=== PATIENT | male | born 1970 | race Caucasian/White ===

== ENCOUNTER 2021-04-07 16:47 | Inpatient (IN) | payer OTHER ==
--- NOTE | 2021-04-07 17:13 | ED ---
General Adult HPI - General Chief complaint: Shortness of Breath Stated complaint: JUDAH Time Seen by Provider: 04/07/21 16:56 Source: patient Mode of arrival: ambulatory Limitations: no limitations - History of Present Illness Initial comments: Dictation was produced using [employer] dictation software. please excuse any grammatical, word or spelling errors. Chief Complaint: 51-year-old presents emergency department for COVID-19 History of Present Illness: Is a 51-year-old male patient has tested positive for Covid 3 days ago. Patient has been symptomatic for approximately 6-7 days. Patient supposedly was recently admitted to the hospital at [facility]. He is admitted for a couple days. He was sent home with home oxygen set 3 L. Patient states that so short of breath having chest pain. Patient is brought to the emergency department. He states he does have some mild pleuritic chest pain. He denies any medical problems but says he takes Norvasc daily. Before meals Covid from his job. He works at a car [employer]. Patient reports that he had all the classic symptoms including anosmia, nasal congestion, cough. The only thing that's persistent nausea chest pain or shortness of breath. The ROS documented in this emergency department record has been reviewed and confirmed by me. Those systems with pertinent positive or negative responses have been documented in the HPI. All other systems are other negative and/or noncontributory. PHYSICAL EXAM: General Impression: Alert and oriented x3, not in acute distress HEENT: Normocephalic atraumatic, extra-ocular movements intact, pupils equal and reactive to light bilaterally, mucous membranes moist. Cardiovascular: Heart regular rate and rhythm Chest: Able to complete full sentences, no retractions, no tachypnea Musculoskeletal: Pulses present and equal in all extremities, no peripheral edema Motor: no focal deficits noted Neurological: CN II-XII grossly intact, no focal motor or sensory deficits noted Skin: Intact with no visualized rashes Psych: Normal affect and mood ED course: 51-year-old male presents emergency department for chest pain s hortness of breath. Vital signs upon arrival shows heart rate of 126. 95% on room air. Without oxygen patient is in the mid 80s. She reports that he was recently admitted to [facility] COVID-19 is sent home with supplemental oxygen.Received records but only records that were faxed to us from [facility] included labs radiology imaging. There was no physician documentation sent from [facility]. Laboratory evaluation obtained. Mild monocytosis at 13.7. Coag panel is unremarkable. D-dimer 1.67. Metabolic panel is acceptable limits. Lactic acidosis 3.3. CRP is 2.9. CT of the chest was ordered showing no signs of pulmonary embolism. Chest x-ray shows multifocal abnormalities. There is concern of superimposed bacterial pneumonia. Patient started on azithromycin and ceftriaxone. Patient will be admitted to [facility] hospitalist group. Pulmonology will be consulted. EKG interpretation: Ventricular rate 124, sinus tachycardia,. 140, QRS 78, QTc 433. No IA prolongation, no QTC prolongation, no ST or T-wave changes noted. Overall, this EKG is unremarkable - Related Data Home Medications Medication Instructions Recorded Confirmed Albuterol Inhaler [Ventolin Hfa 2 puff INHALATION RT-Q6H PRN 04/07/21 04/07/21 Inhaler] Ascorbic Acid [Vitamin C] 500 mg PO DAILY 04/07/21 04/07/21 Cholecalciferol [Vitamin D3 (25 50 mcg PO DAILY 04/07/21 04/07/21 Mcg = 1000 Iu)] Famotidine [Pepcid] 20 mg PO BID 04/07/21 04/07/21 Metoprolol Tartrate [Lopressor] 25 mg PO DIRECTED 04/07/21 04/07/21 Zinc 50 mg PO DAILY 04/07/21 04/07/21 amLODIPine [Norvasc] 10 mg PO DIRECTED 04/07/21 04/07/21 predniSONE See Taper PO DAILY 04/07/21 04/07/21 Allergies Allergy/AdvReac Type Severity Reaction Status Date / Time No Known Allergies Allergy Verified 04/07/21 18:02 Review of Systems ROS Statement: Those systems with pertinent positive or pertinent negative responses have been documented in the HPI. ROS Other: All systems not noted in ROS Statement are negative. Past Medical History Past Medical History: Hypertension History of Any Multi-Drug Resistant Organisms: None Reported Past Surgical History: No Surgical Hx Reported Past Psychological History: No Psychological Hx Reported Smoking Status: Never smoker Past Alcohol Use History: None Reported Past Drug Use History: None Reported General Exam Limitations: no limitations Course Vital Signs 04/07/21 04/07/21 04/07/21 16:49 17:07 17:09 Temperature 98.5 F Pulse Rate 128 H 126 H 126 H Respiratory 25 H 18 Rate Blood Pressure 115/77 121/86 O2 Sat by Pulse 90 L 86 L 95 Oximetry 04/07/21 18:40 Temperature Pulse Rate 118 H Respiratory 18 Rate Blood Pressure 111/87 O2 Sat by Pulse 95 Oximetry Medical Decision Making - Lab Data Result diagrams: 04/07/21 17:08 04/07/21 17:08 Lab Results 04/07/21 04/07/21 04/07/21 Range/Units 17:08 17:08 17:08 WBC 13.7 H (3.8-10.6) k/uL RBC 5.68 (4.30-5.90) m/uL Hgb 15.0 (13.0-17.5) gm/dL Hct 46.9 (39.0-53.0) % MCV 82.7 (80.0-100.0) fL MCH 26.4 (25.0-35.0) pg MCHC 32.0 (31.0-37.0) g/dL RDW 14.3 (11.5-15.5) % Plt Count 272 (150-450) k/uL MPV 7.8 Neutrophils % 90 % Lymphocytes % 5 % Monocytes % 3 % Eosinophils % 1 % Basophils % 0 % Neutrophils # 12.3 H (1.3-7.7) k/uL Lymphocytes # 0.7 L (1.0-4.8) k/uL Monocytes # 0.4 (0-1.0) k/uL Eosinophils # 0.1 (0-0.7) k/uL Basophils # 0.1 (0-0.2) k/uL PT 10.0 (9.0-12.0) sec INR 0.9 (<1.2) APTT 21.4 L (22.0-30.0) sec D-Dimer 1.67 H (<0.60) mg/L FEU Sodium 135 L (137-145) mmol/L Potassium 4.7 (3.5-5.1) mmol/L Chloride 100 (98-107) mmol/L Carbon Dioxide 23 (22-30) mmol/L Anion Gap 12 mmol/L BUN 22 H (9-20) mg/dL Creatinine 1.09 (0.66-1.25) mg/dL Est GFR (CKD-EPI)AfAm >90 (>60 ml/min/1.73 sqM) Est GFR (CKD-EPI)NonAf 79 (>60 ml/min/1.73 sqM) Glucose 326 H (74-99) mg/dL Plasma Lactic Acid Sadi (0.7-2.0) mmol/L Calcium 8.8 (8.4-10.2) mg/dL Magnesium 2.3 (1.6-2.3) mg/dL Troponin I (0.000-0.034) ng/mL C-Reactive Protein 2.9 H (<1.0) mg/dL 04/07/21 04/07/21 Range/Units 17:08 17:08 WBC (3.8-10.6) k/uL RBC (4.30-5.90) m/uL Hgb (13.0-17.5) gm/dL Hct (39.0-53.0) % MCV (80.0-100.0) fL MCH (25.0-35.0) pg MCHC (31.0-37.0) g/dL RDW (11.5-15.5) % Plt Count (150-450) k/uL MPV Neutrophils % % Lymphocytes % % Monocytes % % Eosinophils % % Basophils % % Neutrophils # (1.3-7.7) k/uL Lymphocytes # (1.0-4.8) k/uL Monocytes # (0-1.0) k/uL Eosinophils # (0-0.7) k/uL Basophils # (0-0.2) k/uL PT (9.0-12.0) sec INR (<1.2) APTT (22.0-30.0) sec D-Dimer (<0.60) mg/L FEU Sodium (137-145) mmol/L Potassium (3.5-5.1) mmol/L Chloride (98-107) mmol/L Carbon Dioxide (22-30) mmol/L Anion Gap mmol/L BUN (9-20) mg/dL Creatinine (0.66-1.25) mg/dL Est GFR (CKD-EPI)AfAm (>60 ml/min/1.73 sqM) Est GFR (CKD-EPI)NonAf (>60 ml/min/1.73 sqM) Glucose (74-99) mg/dL Plasma Lactic Acid Sadi 3.3 H* (0.7-2.0) mmol/L Calcium (8.4-10.2) mg/dL Magnesium (1.6-2.3) mg/dL Troponin I <0.012 (0.000-0.034) ng/mL C-Reactive Protein (<1.0) mg/dL Disposition Clinical Impression: COVID-19 Disposition: ADMITTED IP TO THIS HOSP Condition: Critical Referrals: Paco Craft MD [Primary Care Provider] - 1-2 days
[2021-04-07 17:22] LABS: Basophils # (A) 0.1 k/uL (0-0.2); Basophils % (A) 0 %; Eosinophils # (A) 0.1 k/uL (0-0.7); Eosinophils % (A) 1 %; HCT 46.9 % (39.0-53.0); Lymphocytes # (A) 0.7 k/uL (1.0-4.8); Lymphocytes % (A) 5 %; MCH 26.4 pg (25.0-35.0); MCV 82.7 fL (80.0-100.0); Mean Platelet Volume 7.8; Monocytes # (A) 0.4 k/uL (0-1.0); Monocytes % (A) 3 %; Neutrophils # (A) 12.3 k/uL (1.3-7.7); Neutrophils % (A) 90 %; Platelet Count 272 k/uL (150-450); RBC 5.68 m/uL (4.30-5.90); RDW 14.3 % (11.5-15.5); WBC 13.7 k/uL (3.8-10.6)
--- NOTE | 2021-04-07 17:42 | XR ---
EXAMINATION: XR chest 1V portable DATE AND TIME: 04/07/2021 5:25 PM CLINICAL INDICATION: Dyspnea, hypoxia, chest tightness; covid TECHNIQUE: AP upright portable COMPARISON: None FINDINGS: The lungs demonstrate multifocal ill-defined confluent opacities throughout the right upper, mid, and lower lung zones and left mid and lower lung zone. The pattern can correlate with a clinical diagnos is of atypical vs. typical pneumonia. The pleural spaces are negative. The cardiac silhouette is not enlarged. The remainder of the mediastinal silhouette is unremarkable. The skeletal structures and soft tissues are negative for acute findings. IMPRESSION: Prominent multifocal bilateral consolidative pulmonary opacities.
[2021-04-07 17:47] LABS: INR 0.9 (<1.2); Partial Thromboplastin Time 21.4 sec (22.0-30.0)
[2021-04-07 17:59] LABS: African American GFR (CKD) >90 (>60 ml/min/1.73 sqM); Anion Gap 12 mmol/L; Blood Urea Nitrogen 22 mg/dL (9-20); C Reactive Protein 2.9 mg/dL (<1.0); Calcium 8.8 mg/dL (8.4-10.2); Carbon Dioxide 23 mmol/L (22-30); Chloride 100 mmol/L (98-107); Glucose 326 mg/dL (74-99); Magnesium 2.3 mg/dL (1.6-2.3); Non-African American GFR(CKD) 79 (>60 ml/min/1.73 sqM); Potassium 4.7 mmol/L (3.5-5.1); Sodium 135 mmol/L (137-145)
[2021-04-07] MEDS ORDERED: ACETAMINOPHEN TAB 325 MG TAB PO PRN (18:10)
[2021-04-07] MEDS: CHOLECALCIFEROL 25 MCG (1000 IU) TABLET PO SCH (18:41)
[2021-04-07] MEDS: ENOXAPARIN 40 MG/0.4 ML SYRINGE SQ SCH (18:41)
--- NOTE | 2021-04-07 19:45 | HP ---
HISTORY AND PHYSICAL DATE OF SERVICE: 04/07/2021. CHIEF COMPLAINT: Shortness of breath. HISTORY OF PRESENT ILLNESS: This 51-year-old gentleman with a past medical history of hypertension, being followed by Dr. Craft in the outpatient setting, was recently diagnosed with COVID-19 and was monitored in [facility], was found to be hypoxic. Patient was started on oxygen and patient was discharged, but subsequently at home the patient was progressively short of breath and the patient came to [facility]. Patient was found to be hypoxic. Patient also had features of bilateral interstitial pneumonia. Patient was admitted for further evaluation and treatment. Lactic acid was also elevated. Sugars were also elevated at 326. There is no history of any fever, rigors or chills. No history of headache, loss of consciousness, seizures. PAST MEDICAL HISTORY: History of hypertension. HOME MEDICATIONS: Prednisone, Norvasc, zinc, Lopressor, Pepcid, vitamin D3, vitamin C and Ventolin HFA. Doses are reviewed. ALLERGIES: NOTED. FAMILY HISTORY: No history of heart disease or strokes in the family. SOCIAL HISTORY: No history of smoking. No history of alcohol intake. REVIEW OF SYSTEMS: ENT: No diminished hearing. No diminished vision. CARDIOVASCULAR SYSTEM: As mentioned earlier. RESPIRATORY SYSTEM: As mentioned earlier. GI: No nausea, vomiting, diarrhea. : No dysuria. NERVOUS SYSTEM: No numbness, weakness. ALLERGY/IMMUNOLOGY: No asthma or hay fever. MUSCULOSKELETAL: As mentioned earlier. HEMATOLOGY/ONCOLOGY: No history of anemia. ENDOCRINE: As mentioned earlier. CONSTITUTIONAL: As mentioned earlier. DERMATOLOGY: Negative. RHEUMATOLOGY: Negative. PSYCHIATRY: As mentioned earlier. PHYSICAL EXAMINATION: Patient is alert, oriented x3. The pulse is 126, blood pressure 121/86, respiration 18, temperature 98.4, pulse ox 86% on room air. HEENT: Conjunctivae normal. Oral mucosa moist. NECK: No jugular venous distention. CARDIOVASCULAR: S1, S2 muffled. RESPIRATION: Breath sounds diminished at the bases. A few scattered rhonchi. ABDOMEN: Soft, nontender. LEGS: No edema. No swelling. NERVOUS SYSTEM: Higher functions as mentioned earlier. Moves all 4 limbs. No focal motor or sensory deficit. LYMPHATICS: No lymph node palpable in neck, axillae or groin. SKIN: No ulcer, rash, bleeding. JOINTS: No active deforming arthropathy. LABS: WBC 13.7, sodium 135, potassium 4.7 and glucose is 326. Lactic acid 3.3. CRP is 2.9. ASSESSMENT: 1. Acute COVID-19 pneumonia with acute bilateral interstitial pneumonia with acute hypoxic respiratory failure with possible sepsis, present on admission. 2. Elevated D-dimer. Rule out pulmonary embolism. 3. Hyponatremia. 4. Uncontrolled diabetes mellitus with hyperglycemia. 5. Elevated plasma lactic acid. 6. Elevated CRP and inflammatory markers of COVID-19. 7. Hypertension. 8. Obesity with body mass index of 33. RECOMMENDATIONS AND DISCUSSION: In this 51-year-old gentleman who presented with multiple complex medical issues, we will monitor the patient closely, continue the current medications, continue symptomatic treatment. Otherwise at this time I would recommend a CT angio of the chest and consultation with Pulmonary as well as Vascular and Infectious Disease, possible remdesivir. Monitor blood sugars. IV steroids. Prognosis extremely guarded because of multiple complex medical issues. Further recommendations to follow. A copy of this dictation is being forwarded to Dr. Craft, who is the primary physician. MMODL / IJN: [id number] /
--- NOTE | 2021-04-07 19:58 | CT ---
EXAMINATION TYPE: CT angio chest DATE OF EXAM: 04/07/2021 7:24 PM COMPARISON: Chest x-ray 04/07/2021 525pm HISTORY: Shortness of breath, elevated d-dimer. CT DLP: 488.6 mGycm Automated exposure control for dose reduction was used. CONTRAST: CTA scan of the thorax is performed with IV Contrast, patient injected with 100 mL of Isovu e 370, pulmonary embolism protocol. . FINDINGS: LUNGS: Prominent multifocal bilateral consolidative pulmonary opacities in a peripheral distribution are redemonstrated, findings which can correlate with a clinical diagnosis of atypical pneumonia. MEDIASTINUM: There is satisfactory enhancement of the pulmonary artery and its branches, there is no CT evidence for pulmonary embolism. No acute aortic findings. No cardiomegaly or pericardial effusion . There are no greater than 1 cm hilar or mediastinal lymph nodes. OTHER: No additional significant abnormality is seen. IMPRESSION: 1. NEGATIVE FOR PULMONARY EMBOLISM. 2. PROMINENT MULTIFOCAL BILATERAL CONSOLIDATIVE PULMONARY OPACITIES.
[2021-04-07] MEDS ORDERED: NALOXONE 0.4 MG/ML 1 ML VIAL IV PRN (20:04)
[2021-04-07] MEDS ORDERED: cefTRIAXone IN SWFI 1,000 MG/10 ML SYRINGE IVP STA (20:06)
[2021-04-07] MEDS ORDERED: AZITHROMYCIN 500 MG in SODIUM CHLORIDE 0.9% 250 ML IVPB STA (20:06)
[2021-04-07 20:21] LABS: ALT 60 U/L (4-49); AST 38 U/L (17-59); African American GFR (CKD) >90 (>60 ml/min/1.73 sqM); Albumin 3.7 g/dL (3.5-5.0); Alkaline Phosphatase 86 U/L (38-126); Anion Gap 16 mmol/L; Blood Urea Nitrogen 23 mg/dL (9-20); C Reactive Protein 3.1 mg/dL (<1.0); Calcium 8.8 mg/dL (8.4-10.2); Carbon Dioxide 19 mmol/L (22-30); Chloride 101 mmol/L (98-107); Glucose 327 mg/dL (74-99); LDH 1185 U/L (313-618); Non-African American GFR(CKD) 79 (>60 ml/min/1.73 sqM); Potassium 4.9 mmol/L (3.5-5.1); Sodium 136 mmol/L (137-145); Total Bilirubin 0.7 mg/dL (0.2-1.3); Total Protein 7.2 g/dL (6.3-8.2)
[2021-04-07 21:00] LABS: Glucose,Whole Blood 176 mg/dL (75-99)
[2021-04-07] MEDS: INSULIN ASPART (NovoLOG) 100 UNIT/ML VIAL SQ SCH (21:23)
[2021-04-07] MEDS: SODIUM CHLORIDE 0.9% 1,000 ML IV SCH (21:25)
[2021-04-08 07:19] LABS: Glucose,Whole Blood 88 mg/dL (75-99)
[2021-04-08] MEDS: INSULIN ASPART (NovoLOG) 100 UNIT/ML VIAL SQ SCH ×4 (07:42→20:28)
[2021-04-08] MEDS: DEXAMETHASONE SOD PHOSPHATE 10 MG/ML 1 ML VIAL IV SCH (09:54)
[2021-04-08] MEDS: CHOLECALCIFEROL 25 MCG (1000 IU) TABLET PO SCH (09:54)
[2021-04-08 11:44] LABS: Glucose,Whole Blood 98 mg/dL (75-99)
--- NOTE | 2021-04-08 15:19 | P.CNPUL ---
History of Present Illness Consult date: 04/08/21 Requesting physician: Aneesh Salinas Reason for consult: dyspnea, cough, hypoxemia, pneumonia, abnormal CXR/CT Chief complaint: Cough, dyspnea History of present illness: 51-year-old male patient with past medical history of hypertension, otherwise generally healthy who presented to the emergency department on 04/07/2021 with complaints of fever, body aches, loss of taste, increasing shortness of breath and cough with some phlegm production and patient tested positive for COVID 3 days ago. Patient was supposedly recently admitted to the hospital at [facility] for a couple of days. He was then sent home with home oxygen set at 3 L. Patient came in for reevaluation. He reports some mild pleuritic chest pain. No nausea or vomiting, no abdominal pain. His chest x-ray shows prominent multifocal bilateral consolidative pulmonary opacities. His d-dimer was 1.67, and CT angiogram of the chest was completed showing no evidence of pulmonary embolism, and prominent multifocal bilateral consolidative pulmonary opacities. From the records received from [facility] there was a concern of superimposed bacterial pneumonia based on the chest x-ray abnormalities. Patient had been started on azithromycin and Rocephin. Patient's lactic acid was mildly elevated on admission at 3.3, patient was given some IV fluids and is down to 1.9, his CBC was a white count of 13.7, hemoglobin is 15, lymphocyte count is 0.7, neutrophils is 12.3. Coags are unremarkable, sodium is 136, potassium is 4.9, CO2 is 19, B1 is 23, creatinine is 1.09, ferritin level is 1856, AST is 38, ALT 60, alkaline phosphatase is 86, LDH is 1185, CRP was 3.1, troponin was less than 0.012. EKG shows sinus tachycardia with a rate of 124 BPM. Lung sounds reveal diffuse crackles bilaterally. She was started on Decadron 6 mg daily, prophylactic Lovenox, he was given a dose of azithromycin and Rocephin in the emergency department. Pulmonary consultation was requested. Review of Systems All systems: negative Constitutional: Denies chills, Denies fever Eyes: denies blurred vision, denies pain Ears, nose, mouth and throat: Denies headache, Denies sore throat Cardiovascular: Denies chest pain, Denies shortness of breath Respiratory: Reports dyspnea, Denies cough Gastrointestinal: Denies abdominal pain, Denies diarrhea, Denies nausea, Denies vomiting Musculoskeletal: Denies myalgias Integumentary: Denies pruritus, Denies rash Neurological: Denies numbness, Denies weakness Psychiatric: Denies anxiety, Denies depression Endocrine: Denies fatigue, Denies weight change Past Medical History Past Medical History: Hypertension History of Any Multi-Drug Resistant Organisms: None Reported Past Surgical History: No Surgical Hx Reported Past Anesthesia/Blood Transfusion Reactions: No Reported Reaction Past Psychological History: No Psychological Hx Reported Smoking Status: Never smoker Past Alcohol Use History: None Reported Past Drug Use History: None Reported Medications and Allergies Home Medications Medication Instructions Recorded Confirmed Type Albuterol Inhaler [Ventolin Hfa 2 puff INHALATION RT-Q6H PRN 04/07/21 04/07/21 History Inhaler] Ascorbic Acid [Vitamin C] 500 mg PO DAILY 04/07/21 04/07/21 History Cholecalciferol [Vitamin D3 (25 50 mcg PO DAILY 04/07/21 04/07/21 History Mcg = 1000 Iu)] Famotidine [Pepcid] 20 mg PO BID 04/07/21 04/07/21 History Metoprolol Tartrate [Lopressor] 25 mg PO DIRECTED 04/07/21 04/07/21 History Zinc 50 mg PO DAILY 04/07/21 04/07/21 History amLODIPine [Norvasc] 10 mg PO DIRECTED 04/07/21 04/07/21 History predniSONE See Taper PO DAILY 04/07/21 04/07/21 History Allergies Allergy/AdvReac Type Severity Reaction Status Date / Time No Known Allergies Allergy Verified 04/07/21 18:02 Physical Exam Vitals: Vital Signs Temp Pulse Pulse Resp BP BP Pulse Ox 04/08/21 09:45 98.5 F 111 H 18 116/81 94 L 04/08/21 06:00 99 99/66 94 L 04/08/21 02:00 99.2 F 90 18 114/80 94 L 04/07/21 23:50 99.4 F 83 17 111/77 93 L 04/07/21 23:07 99 18 124/82 94 L 04/07/21 21:21 101 H 18 129/81 93 L 04/07/21 18:40 118 H 18 111/87 95 04/07/21 17:09 126 H 95 04/07/21 17:07 126 H 18 121/86 86 L 04/07/21 16:49 98.5 F 128 H 25 H 115/77 90 L Intake and Output 04/08/21 04/08/21 04/08/21 06:59 14:59 22:59 Other: # Voids 1 GENERAL EXAM: Alert, very pleasant, 51-year-old male on 2 L of oxygen with a pulse ox of 94% mildly short of breath, with occasional cough comfortable in no apparent distress. HEAD: Normocephalic/atraumatic. EYES: Normal reaction of pupils, equal size. Conjunctiva pink, sclera white. NOSE: Clear with pink turbinates. THROAT: No erythema or exudates. NECK: No masses, no JVD, no thyroid enlargement, no adenopathy. CHEST: No chest wall deformity. Symmetrical expansion. LUNGS: Equal air entry with mild bilateral crackles CVS: Regular rate and rhythm, normal S1 and S2, no gallops, no murmurs, no rubs ABDOMEN: Soft, nontender. No hepatosplenomegaly, normal bowel sounds, no gua rding or rigidity. EXTREMITIES: No clubbing, no edema, no cyanosis, 2+ pulses and upper and lower extremities. MUSCULOSKELETAL: Muscle strength and tone normal. SPINE: No scoliosis or deformity SKIN: No rashes CENTRAL NERVOUS SYSTEM: Alert and oriented -3. No focal deficits, tone is normal in all 4 extremities. PSYCHIATRIC: Alert and oriented -3. Appropriate affect. Intact judgment and insight. Results - Laboratory Findings CBC and BMP: 04/07/21 17:08 04/07/21 17:08 PT/INR, D-dimer PT 10.0 sec (9.0-12.0) 04/07/21 17:08 INR 0.9 (<1.2) 04/07/21 17:08 D-Dimer 1.67 mg/L FEU (<0.60) H 04/07/21 17:08 Abnormal lab findings: Abnormal Labs 04/07/21 04/07/21 04/07/21 17:08 17:08 17:08 WBC 13.7 H Neutrophils # 12.3 H Lymphocytes # 0.7 L APTT 21.4 L D-Dimer 1.67 H Sodium 135 L Carbon Dioxide BUN 22 H Glucose 326 H POC Glucose (mg/dL) Plasma Lactic Acid Sadi Ferritin ALT Lactate Dehydrogenase C-Reactive Protein 2.9 H 04/07/21 04/07/21 04/07/21 17:08 17:08 20:59 WBC Neutrophils # Lymphocytes # APTT D-Dimer Sodium 136 L Carbon Dioxide 19 L BUN 23 H Glucose 327 H POC Glucose (mg/dL) 176 H Plasma Lactic Acid Sadi 3.3 H* Ferritin 1856.0 H ALT 60 H Lactate Dehydrogenase 1185 H C-Reactive Protein 3.1 H - Diagnostic Findings Chest x-ray: report reviewed, image reviewed CT scan - chest: report reviewed, image reviewed Additional studies: EKG was reviewed Assessment and Plan Plan: Assessment: #1. Acute hypoxic respiratory failure, with onset of symptoms of greater than 7 days prior to presentation. Patient is a non-vaccinated adult. Recently hospitalized at [facility], and was sent home on 3 L of supplemental oxygen. The dates are not known to us. He was sent home on antibiotics for possibly bacterial infection. Patient is outside the window for Remdesivir #2. Recent admission at [facility] for COVID-19 pneumonia, and patient was sent home on supplemental oxygen at 3 L #3. Hypertension #4. Never smoker #5. Elevated d-dimer #6. Rule out possibility of bacterial pneumonia Plan: Send a procalcitonin level Send a sputum culture We'll continue antibiotics for now Continue Decadron and Lovenox We will add multivitamins We'll continue to follow his clinical course He is not a candidate for Remdesivir due to length of symptoms I performed a history & physical examination of the patient and discussed their management with my nurse practitioner, Yvette Krishna. I reviewed the nurse practitioner's note and agree with the documented findings and plan of care. Lung sounds are positive for diffuse wheezes throughout the lung dixon. The findings and the impression was discussed with the patient. I attest to the documentation by the nurse practitioner. Time with Patient: Greater than 30
[2021-04-08 16:51] LABS: Glucose,Whole Blood 156 mg/dL (75-99)
[2021-04-08] MEDS: ENOXAPARIN 40 MG/0.4 ML SYRINGE SQ SCH (17:38)
[2021-04-08] MEDS: AZITHROMYCIN 500 MG TAB PO SCH (17:38)
[2021-04-08 20:25] LABS: Glucose,Whole Blood 160 mg/dL (75-99)
[2021-04-08] MEDS: SODIUM CHLORIDE 0.9% 1,000 ML IV SCH (20:30)
--- NOTE | 2021-04-08 20:34 | PN ---
PROGRESS NOTE DATE OF SERVICE: 04/08/2021 This 51-year-old gentleman who was admitted with shortness of breath and acute COVID-19 infection and bilateral pneumonia is being closely monitored. Pulmonary and Infectious Disease are following the patient closely. The patient is started on dexamethasone and usual medications as well as Rocephin also. The serum protein is 3.1. PAST MEDICAL HISTORY: Reviewed. REVIEW OF SYSTEMS: Cardiovascular system: No angina or palpitations. Respiratory: As mentioned earlier. GI: As mentioned earlier. : No dysuria. Nervous System: No numbness or weakness. CURRENT MEDICATIONS: Reviewed include Zithromax, Rocephin, Lovenox, NovoLog. Narcan. Other medications and doses reviewed. PHYSICAL EXAMINATION: Pulse 105, blood pressure 111/70, respiration 20, temperature 98.2, pulse ox 98% on 2 L. HEENT: Conjunctivae normal. Oral mucosa moist. NECK: No jugular venous distention. No lymph node enlargement. CARDIOVASCULAR: S1, S2, muffled. No S3, no S4, RESPIRATORY: Diminished breath sounds at the bases. A few scattered rhonchi. ABDOMEN: Soft, nontender. LEGS: No edema, no swelling. NERVOUS SYSTEM: No focal deficits. LABS: WBC 13.2, hemoglobin 15, sodium 130. Other labs are noted. ASSESSMENT: 1. Acute COVID-19 infection with acute bilateral interstitial pneumonia with acute hypoxic respiratory failure with possible sepsis, present on admission. 2. Possible ( ) bacterial pneumonia. 3. Elevated D-dimer. No evidence of pulmonary embolism. 4. Hyponatremia. 5. Uncontrolled diabetes type 2 with hyperglycemia. 6. Elevated plasma lactic acid. 7. Elevated CRP with inflammatory markers of COVID-19. 8. Hypertension. 9. Obesity with body mass index of 33. RECOMMENDATIONS AND DISCUSSION: Recommend to continue current management and symptomatic treatment. Otherwise, at this time I recommend continue with current medications, continue the antibiotics. Repeat labs. Otherwise, a CT angio which was personally reviewed by me showed evidence of multifocal bilateral consolidative process and as well as negative pulmonary embolism. MMODL / IJN: [id number] /
[2021-04-09 07:00] LABS: Glucose,Whole Blood 85 mg/dL (75-99)
[2021-04-09] MEDS: INSULIN ASPART (NovoLOG) 100 UNIT/ML VIAL SQ SCH ×4 (07:01→21:57)
[2021-04-09] MEDS: AZITHROMYCIN 500 MG TAB PO SCH (08:15)
[2021-04-09] MEDS: CHOLECALCIFEROL 25 MCG (1000 IU) TABLET PO SCH (08:15)
[2021-04-09] MEDS: DEXAMETHASONE SOD PHOSPHATE 10 MG/ML 1 ML VIAL IV SCH (08:22)
--- NOTE | 2021-04-09 10:09 | P.CONS ---
History of Present Illness - Reason for Consult Consult date: 04/08/21 covid 19 pneumonia Requesting physician: Jessica Encinas - Chief Complaint shortness of breath x few days - History of Present Illness History of present illness : Patient is 51-year-old male presenting to the ER last evening for evaluation of increasing shortness of breath and cough in this patient symptom has been going on for more than 10 days and apparently was admitted at [facility] for 3 days stabilized and subsequent discharged home on last Sunday that is about 4 days before presentation to the hospital on home oxygen 3 L patient now presenting this facility complaining of increasing shortness of breath and chest pain which is mostly on the left side pleuritic also complaining of shortness of breath and minimization elevated at rest patient did have a cough with occasional clear sputum no hemoptysis no nausea no vomiting no abdominal pain and diarrhea has resolved on presentation to the hospital the patient was afebrile patient was 90% on room air currently 96% on 2 L nasal cannula patient did have a white count of 13.7 with a left shift and lymphopenia D-dimer was elevated 1.67 creatinine is normal AST is elevated CRP was 3.1 glucose is normal at 0.08 patient did have a chest x-ray pulmonary multifocal bilateral consolidative pulmonary process CT angiogram of the chest negative for PE multifocal bilateral consolidative pulmonary opacities patient has been admitted to hospital patient was started on dexamethasone her Lovenox as well as antibiotic infectious disease was consulted for further management Review of system: CONSTITUTIONAL: Positive for weakness denies high-grade fever. EYES: No complaint. ENT: No complaint. RESPIRATORY: As per history of present illness. CARDIOVASCULAR: No complaint. GENITOURINARY: No complaint. GASTROINTESTINAL: No complaint. MUSCULOSKELETAL: No complaint. INTEGUMENTARY: No complaint. PSYCHOLOGIC: No complaint. ENDOCRINE: No complaint. NEUROLOGIC: No complaint. Past medical history : Reviewed, documented below Past surgical history : Reviewed, documented below Social history: Reviewed, documented below Medications: Reviewed, as documented below EXAMINATION: Vital sigans= Reviewed and documented below GENERAL DESCRIPTION: Middle-aged male lying in bed, no distress. No tachypnea or accessory muscle of respiration use. HEENT: Shows Pallor , no scleral icterus. Oral mucous membrane is dry. NECK: Trachea central, no thyromegaly. LUNGS: Unlabored breathing. Decrease intensity of breath sounds. No wheeze or crackle. HEART: S1, S2, regular rate and rhythm. ABDOMEN: Soft, no tenderness , guarding or rigidity EXTREMITIES: No edema of feet. SKIN: No rash, no masses palpable. NEUROLOGICAL: The patient is awake, alert, oriented x3, mood and affect normal. LABS AND RADIOLOGY: Reviewed results see below Assessment : 1-patient presented to hospital with increasing shortness of breath chest pain and cough in this patient has been diagnosed with a COVID-19 pneum onia and has been recently admitted at [facility] patient is currently out of the therapeutic window for remdesivir and clinically suspicious is low for secondary bacterial pneumonia especially with a normal procalcitonin Plan: 1-continue with the Lovenox dexamethasone zinc and ascorbic acid 2-discontinue Rocephin and Zithromax 3-droplet isolation and respiratory support We will follow on clinical condition and cultures to further adjust medication if needed Thank you for this consultation we will follow the patient along with you Past Medical History Past Medical History: Hypertension History of Any Multi-Drug Resistant Organisms: None Reported Past Surgical History: No Surgical Hx Reported Past Anesthesia/Blood Transfusion Reactions: No Reported Reaction Past Psychological History: No Psychological Hx Reported Smoking Status: Never smoker Past Alcohol Use History: None Reported Past Drug Use History: None Reported Medications and Allergies Home Medications Medication Instructions Recorded Confirmed Type Albuterol Inhaler [Ventolin Hfa 2 puff INHALATION RT-Q6H PRN 04/07/21 04/07/21 History Inhaler] Ascorbic Acid [Vitamin C] 500 mg PO DAILY 04/07/21 04/07/21 History Cholecalciferol [Vitamin D3 (25 50 mcg PO DAILY 04/07/21 04/07/21 History Mcg = 1000 Iu)] Famotidine [Pepcid] 20 mg PO BID 04/07/21 04/07/21 History Metoprolol Tartrate [Lopressor] 25 mg PO DIRECTED 04/07/21 04/07/21 History Zinc 50 mg PO DAILY 04/07/21 04/07/21 History amLODIPine [Norvasc] 10 mg PO DIRECTED 04/07/21 04/07/21 History predniSONE See Taper PO DAILY 04/07/21 04/07/21 History Allergies Allergy/AdvReac Type Severity Reaction Status Date / Time No Known Allergies Allergy Verified 04/07/21 18:02 Physical Exam Vitals: Vital Signs Temp Pulse Pulse Resp BP BP Pulse Ox 04/08/21 21:49 97.9 F 78 16 101/69 96 04/08/21 18:54 98.1 F 105 H 20 111/78 90 L 04/08/21 14:00 99.5 F 116 H 18 108/76 98 04/08/21 09:45 98.5 F 111 H 18 116/81 94 L 04/08/21 06:00 99 99/66 94 L 04/08/21 02:00 99.2 F 90 18 114/80 94 L 04/07/21 23:50 99.4 F 83 17 111/77 93 L 04/07/21 23:07 99 18 124/82 94 L Intake and Output 04/08/21 04/08/21 04/08/21 06:59 14:59 22:59 Other: Voiding Method Toilet # Voids 1 Results CBC & Chem 7: 04/07/21 17:08 04/07/21 17:08 Labs: Abnormal Lab Results - Last 24 Hours (Table) 04/07/21 04/08/21 04/08/21 Range/Units 17:08 16:49 20:23 POC Glucose (mg/dL) 156 H 160 H (75-99) mg/dL Ferritin 1856.0 H (22.0-322.0) ng/mL
[2021-04-09 11:47] LABS: Glucose,Whole Blood 139 mg/dL (75-99)
--- NOTE | 2021-04-09 14:59 | P.PN ---
Subjective Progress Note Date: 04/09/21 51-year-old male patient with past medical history of hypertension, otherwise generally healthy who presented to the emergency department on 04/07/2021 with complaints of fever, body aches, loss of taste, increasing shortness of breath and cough with some phlegm production and patient tested positive for COVID 3 days ago. Patient was supposedly recently admitted to the hospital at [facility] for a couple of days. He was then sent home with home oxygen set at 3 L. Patient came in for reevaluation. He reports some mild pleuritic chest pain. No nausea or vomiting, no abdominal pain. His chest x- ray shows prominent multifocal bilateral consolidative pulmonary opacities. His d-dimer was 1.67, and CT angiogram of the chest was completed showing no evidence of pulmonary embolism, and prominent multifocal bilateral consolidative pulmonary opacities. From the records received from [facility] there was a concern of superimposed bacterial pneumonia based on the chest x-ray abnormalities. Patient had been started on azithromycin and Rocephin. Patient's lactic acid was mildly elevated on admission at 3.3, patient was given some IV fluids and is down to 1.9, his CBC was a white count of 13.7, hemoglobin is 15, lymphocyte count is 0.7, neutrophils is 12.3. Coags are unremarkable, sodium is 136, potassium is 4.9, CO2 is 19, B1 is 23, creatinine is 1.09, ferr itin level is 1856, AST is 38, ALT 60, alkaline phosphatase is 86, LDH is 1185, CRP was 3.1, troponin was less than 0.012. EKG shows sinus tachycardia with a rate of 124 BPM. Lung sounds reveal diffuse crackles bilaterally. She was started on Decadron 6 mg daily, prophylactic Lovenox, he was given a dose of azithromycin and Rocephin in the emergency department. Pulmonary consultation was requested. The patient is seen today 04/09/2021 in follow-up on the regular medical floor. He is currently sitting up at the bedside. Awake and alert in no acute distress. He is maintaining O2 saturation in the 90s on 2 L/m per nasal cannula. No IV fluids. Remains on Decadron, Lovenox. Pro Calcitonin 0.08. Blood sugar 139. Objective - Vital Signs Vital signs: Vital Signs Temp 98.1 F 04/09/21 14:23 Pulse 96 04/09/21 14:23 Resp 20 04/09/21 14:23 BP 121/83 04/09/21 14:23 Pulse Ox 96 04/09/21 10:00 Intake & Output 04/08/21 04/09/21 04/09/21 18:59 06:59 18:59 Intake Total 400 Balance 400 Intake: Oral 400 Other: Voiding Method Toilet Toilet # Voids 3 - Exam GENERAL EXAM: Alert, pleasant 51-year-old male patient, on 2 L nasal cannula, comfortable in no apparent distress. HEAD: Normocephalic. EYES: Normal reaction of pupils, equal size. NOSE: Clear with pink turbinates. THROAT: No erythema or exudates. NECK: No masses, no JVD. CHEST: No chest wall deformity. LUNGS: Equal air entry with faint crackles in the posterior bases. CVS: S1 and S2 normal with no audible murmur, regular rhythm. ABDOMEN: No hepatosplenomegaly, normal bowel sounds, no guarding or rigidity. SPINE: No scoliosis or deformity SKIN: No rashes CENTRAL NERVOUS SYSTEM: No focal deficits, tone is normal in all 4 extremities. EXTREMITIES: There is no peripheral edema. No clubbing, no cyanosis. Peripheral pulses are intact. - Labs CBC & Chem 7: 04/07/21 17:08 04/07/21 17:08 Labs: Abnormal Lab Results - Last 24 Hours (Table) 04/08/21 04/08/21 04/09/21 Range/Units 16:49 20:23 11:46 POC Glucose (mg/dL) 156 H 160 H 139 H (75-99) mg/dL Assessment and Plan Assessment: 1 Acute hypoxic respiratory failure, with onset of symptoms of greater than 7 days prior to presentation. Patient is a non-vaccinated adult. Recently h ospitalized at [facility], and was sent home on 3 L of supplemental oxygen. The dates are not known to us. He was sent home on antibiotics for possibly bacterial infection. Patient is outside the window for Remdesivir 2 Recent admission at [facility] for COVID-19 pneumonia, and patient was sent home on supplemental oxygen at 3 L 3 Hypertension 4 Never smoker 5 Elevated d-dimer 6 Rule out possibility of bacterial pneumonia Plan: The patient was seen and evaluated Pro calcitonin normal Continue Decadron and Lovenox Add vitamins Probable discharge in the next 24-48 hours I, the cosigning physician, performed a history & physical examination of the patient. Lungs sounds with crackles in the posterior bases. Maintaining good O2 saturations in the 90s on 2 L/m per nasal cannula. I discussed the assessment and plan of care with my nurse practitioner, Ashley Guillaume. I attest to the above note as dictated by her.
[2021-04-09 16:50] LABS: Glucose,Whole Blood 137 mg/dL (75-99)
[2021-04-09] MEDS: ENOXAPARIN 40 MG/0.4 ML SYRINGE SQ SCH (17:21)
--- NOTE | 2021-04-09 20:01 | PN ---
PROGRESS NOTE DATE OF SERVICE: 04/09/2021 This 51-year-old gentleman who was admitted with acute bilateral interstitial pneumonia with COVID-19 pneumonia was recently readmitted from the other hospital. The patient is started on multiple medications. Patient is feeling slightly better. Patient also has uncontrolled diabetes mellitus, type 2. The blood sugar has been better controlled at this time. The patient is on insulin scale. Patient is on dexamethasone 60 mg IV daily. Past medical history reviewed. REVIEW OF SYSTEMS: CARDIOVASCULAR SYSTEM: No angina. RESPIRATION: As mentioned earlier. GI: As mentioned earlier. : No dysuria. NERVOUS SYSTEM: No numbness, weakness. CURRENT MEDICATIONS: Reviewed and include Tylenol, vitamin C, vitamin D3, Decadron, Lovenox, NovoLog. Doses are reviewed. PHYSICAL EXAMINATION: Patient is alert and oriented x3. Pulse 86, blood pressure 112/81, respiration 18, temperature 98 degrees, pulse ox 93% on 2 L. HEENT: Conjunctivae normal. NECK: No jugular venous distention. CARDIOVASCULAR: S1, S2 muffled. RESPIRATION: Breath sounds diminished at the bases. A few scattered rhonchi and crackles. ABDOMEN: Soft, nontender. LEGS: No edema. No swelling. NERVOUS SYSTEM: ntd LABS: Accu-Cheks 139, 137. WBC 13.7. Sodium 136. LFTs are noted. LDH is 1185. ASSESSMENT: 1. Acute COVID-19 infection with acute bilateral interstitial pneumonia with acute hypoxic respiratory failure with possible sepsis, present on admission, with failure of outpatient treatment. 2. Possible superadded bacterial pneumonia. 3. Elevated D-dimer with no evidence of pulmonary embolism. 4. Hyponatremia. 5. Uncontrolled diabetes mellitus, type 2, with hyperglycemia. 6. Elevated plasma lactic acid. 7. Elevated CRP with inflammatory markers of COVID-19. 8. Hypertension. 9. Obesity with body mass index of 33. RECOMMENDATIONS AND DISCUSSION: I recommend to continue current medications, continue with the monitoring, symptomatic treatment. Continue with steroids. Continue the rest of medications. We will repeat a chest x-ray tomorrow and repeat labs also. Closely follow with multiple consultants. Prognosis guarded. Further recommendations to follow. MMODL / IJN: [id number] / MTDD
[2021-04-09 20:17] LABS: Glucose,Whole Blood 143 mg/dL (75-99)
[2021-04-09] MEDS: SODIUM CHLORIDE 0.9% 1,000 ML IV SCH (21:58)
--- NOTE | 2021-04-09 23:47 | PN ---
PROGRESS NOTE DATE OF SERVICE: 04/09/2021 REASON FOR FOLLOWUP: COVID-19 pneumonia. INTERVAL HISTORY: Patient is afebrile. The patient is breathing more comfortably. The patient denies having any chest pain. No worsening cough or sputum production. No abdominal pain. No diarrhea. PHYSICAL EXAMINATION: Blood pressure 111/78 with a pulse of 71, temperature 99.7. He is 95% on 2 L nasal cannula. General description is a middle-aged male lying in bed in no distress. Respiratory system: Unlabored breathing, decreased intensity of breath sounds. No wheeze. Heart S1, S2. Regular rate and rhythm. Abdomen soft, no tenderness. LABS: No new labs have been obtained today. DIAGNOSTIC IMPRESSION AND PLAN: Patient with acute COVID-19 pneumonia in this patient seems to have shown overall clinical improvement. The patient is on 2 L nasal cannula. Continue with dexamethasone, Lovenox, zinc and ascorbic acid and respiratory support. Monitor clinical course closely. MMODL / IJN: [id number] /
[2021-04-10 06:54] LABS: Glucose,Whole Blood 89 mg/dL (75-99)
[2021-04-10] MEDS: INSULIN ASPART (NovoLOG) 100 UNIT/ML VIAL SQ SCH ×4 (06:55→21:06)
[2021-04-10] MEDS: CHOLECALCIFEROL 25 MCG (1000 IU) TABLET PO SCH (07:21)
[2021-04-10] MEDS: ASCORBIC ACID 500 MG TAB PO SCH (07:21)
[2021-04-10] MEDS: DEXAMETHASONE SOD PHOSPHATE 10 MG/ML 1 ML VIAL IV SCH (07:22)
[2021-04-10] MEDS: ZINC SULFATE 220 MG CAP PO SCH (07:22)
--- NOTE | 2021-04-10 07:47 | XR ---
EXAMINATION TYPE: XR chest 1V portable DATE OF EXAM: 04/10/2021 COMPARISON: 04/07/2021 HISTORY: Covid pneumonia TECHNIQUE: Single frontal view of the chest is obtained. FINDINGS: There are scattered small airspace opacities throughout the lungs which are stable. Heart size normal. There is no pneumothorax or large pleural effusion. The osseous structures are int act IMPRESSION: No change in the acute cardiopulmonary process.
[2021-04-10 11:51] LABS: Glucose,Whole Blood 124 mg/dL (75-99)
[2021-04-10 12:26] LABS: Basophils # (A) 0.02 X 10*3/uL (0.00-0.10); Basophils % (A) 0.1 %; Eosinophils # (A) 0.14 X 10*3/uL (0.04-0.35); HCT 44.2 % (39.6-50.0); HGB 13.7 g/dL (13.0-17.0); Lymphocytes % (A) 9.3 %; MCH 25.1 pg (27.0-32.0); Mean Platelet Volume 12.2 fL (9.5-12.2); Monocytes # (A) 1.11 X 10*3/uL (0.20-1.00); Monocytes % (A) 7.9 %; Neutrophils # (A) 11.23 X 10*3/uL (1.80-7.70); Neutrophils % (A) 80.2 %; Platelet Count 167 X 10*3/uL (140-440); RBC 5.46 X 10*6/uL (4.40-5.60); RDW 15.8 % (11.5-14.5); WBC 14.01 X 10*3/uL (4.50-10.00)
[2021-04-10 13:05] LABS: African American GFR (CKD) 90.9 (60.0-200.0); Anion Gap 14.7 mmol/L (10.00-18.00); BUN/Creat Ratio 22.45 Ratio (12.00-20.00); Blood Urea Nitrogen 24.7 mg/dL (9.0-27.0); Calcium 8.8 mg/dL (8.7-10.3); Carbon Dioxide 22.3 mmol/L (20.0-27.5); Non-African American GFR(CKD) 78.4 (60.0-200.0)
--- NOTE | 2021-04-10 13:35 | P.CRDCN ---
History of Present Illness Consult date: 04/10/21 Requesting physician: Pablo E Sheet Reason for Consult (text): Change in EKG, elevation of t-wave Chief complaint: shortness of breath, COVID History of present illness: This pleasant 51-year-old gentleman with a history of hypertension. Initially presented to the hospital after being discharged from [facility] with COVID pneumonia due to progressively worsening shortness of breath after discharge. He was not vaccinated. We were asked to see the patient in consultation due to some changes noted on EKG. Upon review of the EKG it appears patient has early repolarization changes. He's had no chest discomfort. His breathing is improving. Troponin was negative. He is currently on vitamin C, vitamin D, dexamethasone, Lovenox, zinc and insulin sliding scale. He denies history of hyperlipidemia or diabetes. He denies history of coronary artery disease, denies family history of CAD. He is a nonsmoker. His vital signs have been stable. He is currently on 2 L nasal cannula with an oxygen saturation of 95%. Renal function has been stable. Past Medical History Past Medical History: Hypertension History of Any Multi-Drug Resistant Organisms: None Reported Past Surgical History: No Surgical Hx Reported Past Anesthesia/Blood Transfusion Reactions: No Reported Reaction Past Psychological History: No Psychological Hx Reported Smoking Status: Never smoker Past Alcohol Use History: None Reported Past Drug Use History: None Reported Medications and Allergies Home Medications Medication Instructions Recorded Confirmed Type Albuterol Inhaler [Ventolin Hfa 2 puff INHALATION RT-Q6H PRN 04/07/21 04/07/21 History Inhaler] Ascorbic Acid [Vitamin C] 500 mg PO DAILY 04/07/21 04/07/21 History Cholecalciferol [Vitamin D3 (25 50 mcg PO DAILY 04/07/21 04/07/21 History Mcg = 1000 Iu)] Famotidine [Pepcid] 20 mg PO BID 04/07/21 04/07/21 History Metoprolol Tartrate [Lopressor] 25 mg PO DIRECTED 04/07/21 04/07/21 History Zinc 50 mg PO DAILY 04/07/21 04/07/21 History amLODIPine [Norvasc] 10 mg PO DIRECTED 04/07/21 04/07/21 History predniSONE See Taper PO DAILY 04/07/21 04/07/21 History Allergies Allergy/AdvReac Type Severity Reaction Status Date / Time No Known Allergies Allergy Verified 04/07/21 18:02 Physical Exam Vitals: Vital Signs Temp Pulse Resp BP Pulse Ox 04/10/21 10:00 97.9 F 86 18 110/76 95 04/10/21 06:00 98.4 F 74 16 94/61 95 04/10/21 02:00 97.7 F 60 15 110/78 94 L 04/09/21 22:00 98.7 F 71 17 111/78 95 04/09/21 21:55 71 17 04/09/21 21:00 94 L 04/09/21 17:41 98.9 F 86 18 112/81 93 L 04/09/21 14:23 98.1 F 96 20 121/83 Intake and Output 04/09/21 04/10/21 04/10/21 22:59 06:59 14:59 Intake Total 1200 Balance 1200 Intake: Oral 1200 Other: Voiding Method Toilet Toilet # Voids 4 2 # Bowel Movements 1 PHYSICAL EXAMINATION: This is a 51-year-old male in no apparent distress at the time of my examination. VITAL SIGNS: Blood pressure 110/76, heart rate 86, respirations 18, temp 97.9F. Patient is 95 % on 2 L via nasal cannula. HEENT: Head is atraumatic, normocephalic. Pupils are equal, round. Sclerae anicteric. Conjunctivae are clear. Mucous membranes of the mouth are moist. Neck is supple. There is no elevated jugular venous pressure. No carotid bruit is heard. CHEST EXAMINATION: Clear to auscultation bilaterally. No wheezes rales or rhonchi. Respirations even and nonlabored. HEART EXAMINATION: Heart regular, positive S1 and S2. No S3. No S4. No clicks, rubs or murmurs. ABDOMEN: Soft, nontender. Bowel sounds are heard. No organomegaly noted. EXTREMITIES: 2+ peripheral pulses with no evidence of peripheral edema and no calf tenderness noted. NEUROLOGIC EXAMINATION: Patient is awake, alert and oriented x3. Results 04/10/21 05:19 04/10/21 05:19 Cardiac Enzymes 04/10/21 Range/Units 05:19 Troponin I <0.012 (0.000-0.034) ng/mL CBC 04/10/21 Range/Units 05:19 WBC 14.01 H (4.50-10.00) X 10*3/uL RBC 5.46 (4.40-5.60) X 10*6/uL Hgb 13.7 (13.0-17.0) g/dL Hct 44.2 (39.6-50.0) % Plt Count 167 (140-440) X 10*3/uL Comprehensive Metabolic Panel 04/10/21 Range/Units 05:19 Sodium 137 (135-145) mmol/L Potassium 5.0 (3.5-5.5) mmol/L Chloride 100 (96-109) mmol/L Carbon Dioxide 22.3 (20.0-27.5) mmol/L BUN 24.7 (9.0-27.0) mg/dL Creatinine 1.1 (0.6-1.5) mg/dL Glucose 81 (70-110) mg/dL Calcium 8.8 (8.7-10.3) mg/dL Current Medications Generic Name Dose Route Start Last Admin Trade Name Freq PRN Reason Stop Dose Admin Acetaminophen 650 mg 04/07/21 18:10 Acetaminophen Tab 325 Mg Tab PO Q4HR PRN Fever>101 Ascorbic Acid 1,000 mg 04/10/21 09:00 04/10/21 07:21 Ascorbic Acid 500 Mg Tab PO 1,000 mg DAILY GRACIELA Administration Cholecalciferol 25 mcg 04/07/21 18:15 04/10/21 07:21 Cholecalciferol 25 Mcg (1000 Iu) Tablet PO 25 mcg DAILY GRACIELA Administration Dexamethasone Sodium Phosphate 6 mg 04/08/21 09:00 04/10/21 07:22 Dexamethasone Sod Phosphate 10 Mg/Ml 1 Ml Vial IV 04/17/21 09:01 6 mg DAILY GRACIELA Administration Enoxaparin Sodium 40 mg 04/07/21 18:00 04/09/21 17:21 Enoxaparin 40 Mg/0.4 Ml Syringe SQ 40 mg Q24H GRACIELA Administration Sodium Chloride 1,000 mls @ 20 mls/hr 04/07/21 20:15 04/09/21 21:58 Saline 0.9% IV Not Given .Q24H GRACIELA Insulin Aspart 0 unit 04/07/21 21:00 04/10/21 11:52 Insulin Aspart (Novolog) 100 Unit/Ml Vial SQ Not Given ACHS [facility] Protocol Naloxone HCl 0.2 mg 04/07/21 20:04 Naloxone 0.4 Mg/Ml 1 Ml Vial IV Q2M PRN Opioid Reversal Zinc Sulfate 220 mg 04/10/21 09:00 04/10/21 07:22 Zinc Sulfate 220 Mg Cap PO 220 mg DAILY GRACIELA Administration Intake and Output 04/09/21 04/10/21 04/10/21 22:59 06:59 14:59 Intake Total 1200 Balance 1200 Intake: Oral 1200 Other: Voiding Method Toilet Toilet # Voids 4 2 # Bowel Movements 1 04/10/21 05:19 04/10/21 05:19 EKG Interpretations (text) Sinus rhythm with early repolarization changes Assessment and Plan Assessment: #1COVID pneumonia #2 hypertension #3 EKG changes consistent with early repolarization Plan: From cardiology 's perspective will obtain a 2-D echo with Doppler study. If there is no significant abnormalities on this patient is stable from our standpoint and will follow-up in the office down the road once he is recovered in about 3-4 weeks. SUBSORTER note has been reviewed, I agree with a documented findings and plan of care. Patient was seen and examined.
--- NOTE | 2021-04-10 16:42 | P.PN ---
Subjective Progress Note Date: 04/10/21 Principal diagnosis: COVID-19 pneumonia 51-year-old male patient with past medical history of hypertension, otherwise generally healthy who presented to the emergency department on 04/07/2021 with complaints of fever, body aches, loss of taste, increasing shortness of breath and cough with some phlegm production and patient tested positive for COVID 3 days ago. Patient was supposedly recently admitted to the hospital at [facility] for a couple of days. He was then sent home with home oxygen set at 3 L. Patient came in for reevaluation. He reports some mild pleuritic chest pain. No nausea or vomiting, no abdominal pain. His chest x- ray shows prominent multifocal bilateral consolidative pulmonary opacities. His d-dimer was 1.67, and CT angiogram of the chest was completed showing no evidence of pulmonary embolism, and prominent multifocal bilateral consolidative pulmonary opacities. From the records received from [facility] there was a concern of superimposed bacterial pneumonia based on the chest x-ray abnormalities. Patient had been started on azithromycin and Rocephin. Patient's lactic acid was mildly elevated on admission at 3.3, patient was given some IV fluids and is down to 1.9, his CBC was a white count of 13.7, hemoglobin is 15, lymphocyte count is 0.7, neutrophils is 12.3. Coags are unremarkable, sodium is 136, potassium is 4.9, CO2 is 19, B1 is 23, creatinine is 1.09, ferritin level is 1856, AST is 38, ALT 60, alkaline phosphatase is 86, LDH is 1185, CRP was 3.1, troponin was less than 0.012. EKG shows sinus tachycardia with a rate of 124 BPM. Lung sounds reveal diffuse crackles bilaterally. She was started on Decadron 6 mg daily, prophylactic Lovenox, he was given a dose of azithromycin and Rocephin in the emergency department. Pulmonary consultation was requested. On 04/10/2021 patient seen in follow-up on medical surgical floor, he is currently on 2 L of oxygen pulse ox is 95%, he is up in the chair, breathing comfortably, he states he is feeling much better, 1 sounds reveal bilateral c rackles at bilateral bases, occasional cough, production of clear phlegm. No chest pain, he continues on Decadron 6 mg daily, he is on multivitamins and prophylactic Lovenox. He was outside the window for Remdesivir. Today's labs have been reviewed, his white count is stable at 14.01, hemoglobin is 13.1, his electrolytes and renal profile were unremarkable, his d-dimer and inflammatory markers are still pending for today, pro-calcitonin level was 0.08. No nausea vomiting or diarrhea. He is tolerating oral intake. His sputum culture was sent, Gram stain weaning rare PMNs, rare epithelial cells, few gram-negative bacilli and rare gram-positive positive cocci Objective - Vital Signs Vital signs: Vital Signs Temp 97.6 F 04/10/21 14:00 Pulse 81 04/10/21 14:00 Resp 18 04/10/21 14:00 BP 105/73 04/10/21 14:00 Pulse Ox 92 L 04/10/21 15:19 Intake & Output 04/09/21 04/10/21 04/10/21 18:59 06:59 18:59 Intake Total 400 1200 Balance 400 1200 Intake: Oral 400 1200 Other: Voiding Method Toilet Toilet Toilet # Voids 4 2 # Bowel Movements 1 - Exam GENERAL EXAM: Alert, very pleasant, 51-year-old male on 2 L of oxygen, a pulse ox of 92% comfortable in no apparent distress. HEAD: Normocephalic/atraumatic. EYES: Normal reaction of pupils, equal size. Conjunctiva pink, sclera white. NOSE: Clear with pink turbinates. THROAT: No erythema or exudates. NECK: No masses, no JVD, no thyroid enlargement, no adenopathy. CHEST: No chest wall deformity. Symmetrical expansion. LUNGS: Equal air entry with inspiratory crackles in bilateral bases CVS: Regular rate and rhythm, normal S1 and S2, no gallops, no murmurs, no rubs ABDOMEN: Soft, nontender. No hepatosplenomegaly, normal bowel sounds, no guarding or rigidity. EXTREMITIES: No clubbing, no edema, no cyanosis, 2+ pulses and upper and lower extremities. MUSCULOSKELETAL: Muscle strength and tone normal. SPINE: No scoliosis or deformity SKIN: No rashes CENTRAL NERVOUS SYSTEM: Alert and oriented -3. No focal deficits, tone is normal in all 4 extremities. PSYCHIATRIC: Alert and oriented -3. Appropriate affect. Intact judgment and insight. - Labs CBC & Chem 7: 04/10/21 05:19 12/19/21 05:19 Labs: Abnormal Lab Results - Last 24 Hours (Table) 04/09/21 04/09/21 04/10/21 Range/Units 16:49 20:15 05:19 WBC 14.01 H (4.50-10.00) X 10*3/uL MCH 25.1 L (27.0-32.0) pg MCHC 31.0 L (32.0-37.0) g/dL RDW 15.8 H (11.5-14.5) % Immature Gran # 0.21 H (0.00-0.04) X 10*3/uL Neutrophils # 11.23 H (1.80-7.70) X 10*3/uL Monocytes # 1.11 H (0.20-1.00) X 10*3/uL BUN/Creatinine Ratio (12.00-20.00) Ratio POC Glucose (mg/dL) 137 H 143 H (75-99) mg/dL 04/10/21 04/10/21 Range/Units 05:19 11:50 WBC (4.50-10.00) X 10*3/uL MCH (27.0-32.0) pg MCHC (32.0-37.0) g/dL RDW (11.5-14.5) % Immature Gran # (0.00-0.04) X 10*3/uL Neutrophils # (1.80-7.70) X 10*3/uL Monocytes # (0.20-1.00) X 10*3/uL BUN/Creatinine Ratio 22.45 H (12.00-20.00) Ratio POC Glucose (mg/dL) 124 H (75-99) mg/dL Microbiology - Last 24 Hours (Table) 04/09/21 17:14 Gram Stain - Preliminary Sputum Sputum Culture - Preliminary Assessment and Plan Plan: Assessment: #1. Acute hypoxic respiratory failure, with onset of symptoms of greater than 7 days prior to presentation. Patient is a non-vaccinated adult. Recently hospitalized at [facility], and was sent home on 3 L of supplemental oxygen. The dates are not known to us. He was sent home on antibiotics for possibly bacterial infection. Patient is outside the window for Remdesivir #2. Recent admission at [facility] for COVID-19 pneumonia, and patient was sent home on supplemental oxygen at 3 L #3. Hypertension #4. Never smoker #5. Elevated d-dimer #6. Rule out possibility of bacterial pneumonia Plan: Patient is breathing comfortably, He remains on 2 L of oxygen He is feeling better, Procalcitonin level was negative Antibiotics have been discontinued He was outside the window for Remdesivir Continue Decadron and Lovenox If continues to improve and remains on supplemental oxygen, we may consider discharge home in the next 24 hours I performed a history & physical examination of the patient and discussed their management with my nurse practitioner, Yvette Krishna. I reviewed the nurse practitioner's note and agree with the documented findings and plan of care. Lung sounds are positive for diffuse wheezes throughout the lung dixon. The findings and the impression was discussed with the patient. I attest to the documentation by the nurse practitioner. Time with Patient: Less than 30
[2021-04-10 16:45] LABS: Glucose,Whole Blood 131 mg/dL (75-99)
[2021-04-10] MEDS: ENOXAPARIN 40 MG/0.4 ML SYRINGE SQ SCH (17:09)
--- NOTE | 2021-04-10 18:06 | PN ---
PROGRESS NOTE DATE OF SERVICE: 04/10/2021 REASON FOR FOLLOWUP: COVID-19 pneumonia. INTERVAL HISTORY: Patient is afebrile. The patient is feeling better. Breathing comfortably. Currently on room air. Denies any chest pain. No worsening cough. No sputum production. No abdominal pain or diarrhea. PHYSICAL EXAMINATION: Blood pressure 105/73 with a pulse of 81, temperature 97.6. He is 92% on room air. General description is a middle-aged male up in the chair in no distress. Respiratory system: Unlabored breathing, decreased intensity of breath sounds. No wheeze or crackles. Heart S1, S2. Regular rate and rhythm. Abdomen soft. No tenderness. LABS: Hemoglobin is 13.1, white count 14.7, creatinine 1.1. DIAGNOSTIC IMPRESSION/PLAN: 1. Patient with acute COVID-19 pneumonia in this patient who has shown overall clinical improvement, currently on room air and continue with the Lovenox, dexamethasone, zinc and ascorbic acid. 2. Elevated white count more likely steroid effect and will be monitored closely. MMODL / IJN: [id number] /
--- NOTE | 2021-04-10 19:30 | PN ---
PROGRESS NOTE DATE OF SERVICE: 04/10/2021 This 51-year-old gentleman who was admitted with acute bilateral interstitial pneumonia and COVID-19 is being closely monitored at this time. The patient also had hypoxia. The patient was suspected to have some bacterial pneumonia also. The cultures are negative so far. No chest pain. No palpitations. No fever. Preliminary cultures showed some multiple organisms; appears to be mostly normal keily. No chest pain. No palpitations. Past medical history reviewed. REVIEW OF SYSTEMS: CARDIOVASCULAR SYSTEM: No angina. RESPIRATION: As mentioned earlier. GI: As mentioned earlier. : No dysuria. NERVOUS SYSTEM: No numbness, weakness. CURRENT MEDICATIONS: Reviewed. They include Tylenol, vitamin C, vitamin D3, Lovenox, NovoLog, Narcan. Doses and other medications noted. PHYSICAL EXAMINATION: Patient alert and oriented x3. Pulse 81, blood pressure 105/73, respiration 18, temperature 97.2, pulse ox 94% on 2 L. HEENT: Conjunctivae normal. NECK: No jugular venous distention. CARDIOVASCULAR: S1, S2 muffled. RESPIRATION: Breath sounds diminished at the bases. Bilateral scattered rhonchi and crackles. ABDOMEN: Soft, nontender. LEGS: No edema. No swelling. NERVOUS SYSTEM: No focal deficit. LABS: Labs at this time show WBC 14.2, hemoglobin 13.7. Accu-Cheks are noted. ASSESSMENT: 1. Acute COVID-19 infection with acute bilateral interstitial pneumonia with acute hypoxic respiratory failure and possible sepsis, present on admission with failure of outpatient treatment. 2. Possible suspected bacterial pneumonia. Final sputum cultures pending. 3. Elevated D-dimer with no evidence of pulmonary embolism. 4. Hyponatremia. 5. Uncontrolled diabetes mellitus, type 2, with hyperglycemia. 6. Elevated plasma lactic acid. 7. Increased CRP with elevated inflammatory markers of COVID-19. 8. Hypertension. 9. Obesity with body mass index of 33. RECOMMENDATIONS AND DISCUSSION: I recommend to continue current medications, continue with the monitoring, symptomatic treatment. Continue with the bronchodilators and await the cultures. Closely follow. Guarded prognosis. Further recommendations to follow. MMODL / IJN: [id number] /
[2021-04-10 21:02] LABS: Glucose,Whole Blood 142 mg/dL (75-99)
[2021-04-10] MEDS: SODIUM CHLORIDE 0.9% 1,000 ML IV SCH (21:22)
[2021-04-11 07:02] LABS: Glucose,Whole Blood 76 mg/dL (75-99)
[2021-04-11] MEDS: INSULIN ASPART (NovoLOG) 100 UNIT/ML VIAL SQ SCH ×2 (07:05→11:46)
[2021-04-11] MEDS: DEXAMETHASONE SOD PHOSPHATE 10 MG/ML 1 ML VIAL IV SCH (07:23)
[2021-04-11] MEDS: ASCORBIC ACID 500 MG TAB PO SCH (07:24)
[2021-04-11] MEDS: CHOLECALCIFEROL 25 MCG (1000 IU) TABLET PO SCH (07:24)
[2021-04-11] MEDS: ZINC SULFATE 220 MG CAP PO SCH (07:24)
[2021-04-11 10:26] LABS: C Reactive Protein 1.5 mg/dL (0.00-0.80)
--- NOTE | 2021-04-11 10:52 | ECHOF ---
Referral Reason:COVID, EKG changes MEASUREMENTS -------- HEIGHT: 182.9 cm WEIGHT: 113.4 kg BP: RVIDd: 3.0 cm (< 3.3) IVSd: 1.2 cm (0.6 - 1.1) LVIDd: 4.2 cm (3.9 - 5.3) LVPWd: 1.6 cm (0.6 - 1.1) IVSs: 1.7 cm LVIDs: 3.0 cm LVPWs: 1.7 cm FINDINGS -------- Sinus rhythm. Pt is Covid Positive. LV size, wall thickness and systolic function are normal, with an EF greater than 55%. The left ele tricular size is normal. The right ventricle is normal in size. The left atrial size is normal. The right atrial size is normal. The aortic valve is trileaflet, and appears structurally normal. No aortic stenosis or regurgitation. Mild mitral regurgitation is present. No regurgitation noted Right ventricular systolic pressure is normal at < 35 mmHg. There is no pulmonic regurgitation present. Echo free space represents a pericardial fat pad. CONCLUSIONS -------- 1. Pt is Covid Positive. 2. LV size, wall thickness and systolic function are normal, with an EF greater than 55%. 3. The left ventricular size is normal. 4. The right ventricle is normal in size. 5. The left atrial size is normal. 6. The right atrial size is normal. 7. The aortic valve is trileaflet, and appears structurally normal. No aortic stenosis or regurgitati on. 8. Mild mitral regurgitation is present. 9. No regurgitation noted 10. There is no pulmonic regurgitation present. 11. Echo free space represents a pericardial fat pad. STRATEGIC SOURCING SPECIALIST: Krystal Slater RDCS
--- NOTE | 2021-04-11 11:13 | P.PN ---
Subjective Progress Note Date: 04/11/21 CHIEF COMPLAINT: EKG changes HISTORY OF PRESENT ILLNESS: This pleasant 51-year-old gentleman with a history of hypertension. Initially presented to the hospital after being discharged from [facility] with COVID pneumonia due to progressively worsening shortness of breath after discharge. He was not vaccinated. We were asked to see the patient in consultation due to some changes noted on EKG. Upon review of the EKG it appears patient has early repolarization changes. He's had no chest discomfort. His breathing is improving. Troponin was negative. He is currently on vitamin C, vitamin D, dexamethasone, Lovenox, zinc and insulin sliding scale. He denies history of hyperlipidemia or diabetes. He denies history of coronary artery disease, denies family history of CAD. He is a nonsmoker. His vital signs have been stable. He is currently on 2 L nasal cannula with an oxygen saturation of 95%. Renal function has been stable. 04/11/2021 The patient remains hospitalized in the [facility] unit. Echocardiogram completed revealing ejection fraction 55% with mild mitral regurgitation. Patient's vital signs are stable. Blood pressure 123/78. Heart rate in the 80s. He is on room air with oxygen saturations greater then 92%. He is afebrile. PHYSICAL EXAM: Thorough physical exam not completed secondary to limited evaluation/examination due to Covid19 ASSESSMENT: Covid pneumonia Hypertension EKG changes consistent with early repolarization PLAN: Patient is currently stable from a cardiac standpoint. No further inpatient recommendations. We will sign off. Please reconsult if needed. Nurse practitioner note has been reviewed by physician. Signing provider agrees with the documented findings, assessment, and plan of care. Objective - Vital Signs Vital signs: Vital Signs Temp 97.7 F 04/11/21 09:59 Pulse 93 04/11/21 09:59 Resp 18 04/11/21 09:59 BP 123/78 04/11/21 09:59 Pulse Ox 93 L 04/11/21 09:59 Intake & Output 04/10/21 04/11/21 04/11/21 18:59 06:59 18:59 Intake Total 1200 Balance 1200 Intake: Oral 1200 Other: Voiding Method Toilet # Voids 6 2 # Bowel Movements 0 - Labs CBC & Chem 7: 04/10/21 05:19 04/10/21 05:19 Labs: Abnormal Lab Results - Last 24 Hours (Table) 04/10/21 04/10/21 04/10/21 Range/Units 05:19 05:19 11:50 WBC 14.01 H (4.50-10.00) X 10*3/uL MCH 25.1 L (27.0-32.0) pg MCHC 31.0 L (32.0-37.0) g/dL RDW 15.8 H (11.5-14.5) % Immature Gran # 0.21 H (0.00-0.04) X 10*3/uL Neutrophils # 11.23 H (1.80-7.70) X 10*3/uL Monocytes # 1.11 H (0.20-1.00) X 10*3/uL D-Dimer (<0.60) mg/L FEU BUN/Creatinine Ratio 22.45 H (12.00-20.00) Ratio POC Glucose (mg/dL) 124 H (75-99) mg/dL Ferritin (22.0-322.0) ng/mL Lactate Dehydrogenase (120-246) U/L C-Reactive Protein (0.00-0.80) mg/dL 04/10/21 04/10/21 04/11/21 Range/Units 16:44 20:55 05:53 WBC (4.50-10.00) X 10*3/uL MCH (27.0-32.0) pg MCHC (32.0-37.0) g/dL RDW (11.5-14.5) % Immature Gran # (0.00-0.04) X 10*3/uL Neutrophils # (1.80-7.70) X 10*3/uL Monocytes # (0.20-1.00) X 10*3/uL D-Dimer 1.14 H (<0.60) mg/L FEU BUN/Creatinine Ratio (12.00-20.00) Ratio POC Glucose (mg/dL) 131 H 142 H (75-99) mg/dL Ferritin (22.0-322.0) ng/mL Lactate Dehydrogenase (120-246) U/L C-Reactive Protein (0.00-0.80) mg/dL 04/11/21 Range/Units 05:53 WBC (4.50-10.00) X 10*3/uL MCH (27.0-32.0) pg MCHC (32.0-37.0) g/dL RDW (11.5-14.5) % Immature Gran # (0.00-0.04) X 10*3/uL Neutrophils # (1.80-7.70) X 10*3/uL Monocytes # (0.20-1.00) X 10*3/uL D-Dimer (<0.60) mg/L FEU BUN/Creatinine Ratio (12.00-20.00) Ratio POC Glucose (mg/dL) (75-99) mg/dL Ferritin 1548.0 H (22.0-322.0) ng/mL Lactate Dehydrogenase 316 H (120-246) U/L C-Reactive Protein 1.50 H (0.00-0.80) mg/dL Microbiology - Last 24 Hours (Table) 04/09/21 17:14 Gram Stain - Final Sputum Sputum Culture - Final
[2021-04-11 11:18] LABS: Glucose,Whole Blood 176 mg/dL (75-99)
--- NOTE | 2021-04-11 14:04 | P.DS ---
Providers Date of admission: 04/07/21 20:04 Attending physician: Jessica Encinas Consults: 04/07/21 18:10 Consult Physician Stat Consulting Provider: Shayne Fontaine Consult Reason/Comments: covid Do you want consulting provider notified?: Yes Consult Physician Stat Consulting Provider: Nia Gao Consult Reason/Comments: covid-remdesivir? Do you want consulting provider notified?: Yes Primary care physician: Luana Antonio Hospital Course: Final Diagnosis Acute COVID-19 infection with acute bilateral interstitial pneumonia and acute hypoxic respiratory failure possible sepsis present on admission with failure of outpatient treatment Possible suspected bacterial pneumonia, final sputum cultures negative. Elevated d-dimer with no evidence of PE Leukocytosis secondary to above, also reactive to steroids Hyponatremia Uncontrolled diabetes mellitus type 2 with hyperglycemia Elevated plasma lactic acid resolved Increased CRP with elevated inflammatory markers of COVID-19 pneumonia Hypertension Obesity with body mass index of 33 Discharge Disposition Patient is on room air, no complaints of shortness of breath or discomfort, cleared medically for discharge home to follow-up with PCP and pulmonary services. Repeat labs in 1-2 days. Hospital course This is a pleasant 51-year-old male who presented to the hospital with acute bilateral interstitial pneumonia and COVID-19 who was also hypoxic on admission. Admission for suspected bacterial pneumonia as well. Cultures are negative so far. Echocardiogram this admission showed an EF of 55%. Chest x-ray on admission showed prominent multifocal bilateral consolidative pulmonary disease. CTA was negative for pulmonary embolism, prominent bilateral multifocal bilateral consolidative pulmonary opacities redemonstrated. Labs on admission showed a white count of 13.7, d-dimer 1.67, sodium 136, glucose in the 170s, ferritin 1866, ALT 60, LDH 185, CRP 3.1, negative, troponin negative, pro- calcitonin 0.08. Sputum culture was negative for any growth besides normal keily. Calcitonin level not suggestive of a bacterial pneumonia as previously suspected on admission. Patient was evaluated by cardiology and pulmonary services as a dmission. He was treated with IV Decadron, Lovenox, zinc, vitamin C, vitamin D. 04/11/2021 Patient is evaluated today sitting up in the chair. He is alert and oriented 3. He denies any chest pain, cough, shortness of breath. States that he is ambulating without difficulty. Lungs are clear to auscultation, S1-S2 auscultated. Abdomen soft nontender. Focal neurological exam is negative. Antonia santizo feels ready for discharge today. We'll complete a walking oxygen test prior to discharge. He is 93% room air at rest. Patient will follow up closely with his PCP pulmonary services postdischarge. He will complete a course of oral Decadron Please see medication reconciliation for list of current medications. Thank you for allowing us to participate in the care of this patient. Patient Condition at Discharge: Stable Plan - Discharge Summary Discharge Rx Participant: No New Discharge Prescriptions: New Zinc Sulfate [Orazinc] 220 mg PO DAILY cap Dexamethasone [Decadron] See Taper PO DAILY #6 tablet Continue Cholecalciferol [Vitamin D3 (25 Mcg = 1000 Iu)] 50 mcg PO DAILY Ascorbic Acid [Vitamin C] 500 mg PO DAILY Famotidine [Pepcid] 20 mg PO BID Albuterol Inhaler [Ventolin Hfa Inhaler] 2 puff INHALATION RT-Q6H PRN PRN Reason: Shortness Of Breath Changed Metoprolol Tartrate [Lopressor] 25 mg PO DAILY #0 Discontinued amLODIPine [Norvasc] 10 mg PO DIRECTED predniSONE See Taper PO DAILY Zinc 50 mg PO DAILY Discharge Medication List Albuterol Inhaler [Ventolin Hfa Inhaler] 2 puff INHALATION RT-Q6H PRN 04/07/21 [History] Ascorbic Acid [Vitamin C] 500 mg PO DAILY 04/07/21 [History] Cholecalciferol [Vitamin D3 (25 Mcg = 1000 Iu)] 50 mcg PO DAILY 04/07/21 [History] Famotidine [Pepcid] 20 mg PO BID 04/07/21 [History] Dexamethasone [Decadron] See Taper PO DAILY #6 tablet 04/11/21 [Rx] Metoprolol Tartrate [Lopressor] 25 mg PO DAILY #0 04/11/21 [Rx] Zinc Sulfate [Orazinc] 220 mg PO DAILY cap 04/11/21 [Rx] Follow up Appointment(s)/Referral(s): Judy Way MD [STAFF PHYSICIAN] - 1 Week (Office will call with appointment date and time) Paco Craft MD [Primary Care Provider] - 04/18/21 2:10 pm Shayne Fontaine DO [Doctor of Osteopathic Medicine] - 05/11/21 2:30 pm Ambulatory/Diagnostic Orders: Basic Metabolic Panel [LAB.AMB] Time Frame: 2 Days, Location: None Selected Complete Blood Count w/diff [LAB.AMB] Time Frame: 2 Days, Location: None Selected Discharge Disposition: HOME SELF-CARE
--- NOTE | 2021-04-11 14:10 | P.PN ---
Subjective Progress Note Date: 04/11/21 Principal diagnosis: COVID-19 pneumonia 51-year-old male patient with past medical history of hypertension, otherwise generally healthy who presented to the emergency department on 04/07/2021 with complaints of fever, body aches, loss of taste, increasing shortness of breath and cough with some phlegm production and patient tested positive for COVID 3 days ago. Patient was supposedly recently admitted to the hospital at [facility] for a couple of days. He was then sent home with home oxygen set at 3 L. Patient came in for reevaluation. He reports some mild pleuritic chest pain. No nausea or vomiting, no abdominal pain. His chest x- ray shows prominent multifocal bilateral consolidative pulmonary opacities. His d-dimer was 1.67, and CT angiogram of the chest was completed showing no evidence of pulmonary embolism, and prominent multifocal bilateral consolidative pulmonary opacities. From the records received from [facility] there was a concern of superimposed bacterial pneumonia based on the chest x-ray abnormalities. Patient had been started on azithromycin and Rocephin. Patient's lactic acid was mildly elevated on admission at 3.3, patient was given some IV fluids and is down to 1.9, his CBC was a white count of 13.7, hemoglobin is 15, lymphocyte count is 0.7, neutrophils is 12.3. Coags are unremarkable, sodium is 136, potassium is 4.9, CO2 is 19, B1 is 23, creatinine is 1.09, ferritin level is 1856, AST is 38, ALT 60, alkaline phosphatase is 86, LDH is 1185, CRP was 3.1, troponin was less than 0.012. EKG shows sinus tachycardia with a rate of 124 BPM. Lung sounds reveal diffuse crackles bilaterally. She was started on Decadron 6 mg daily, prophylactic Lovenox, he was given a dose of azithromycin and Rocephin in the emergency department. Pulmonary consultation was requested. On 04/10/2021 patient seen in follow-up on medical surgical floor, he is currently on 2 L of oxygen pulse ox is 95%, he is up in the chair, breathing comfortably, he states he is feeling much better, 1 sounds reveal bilateral c rackles at bilateral bases, occasional cough, production of clear phlegm. No chest pain, he continues on Decadron 6 mg daily, he is on multivitamins and prophylactic Lovenox. He was outside the window for Remdesivir. Today's labs have been reviewed, his white count is stable at 14.01, hemoglobin is 13.1, his electrolytes and renal profile were unremarkable, his d-dimer and inflammatory markers are still pending for today, pro-calcitonin level was 0.08. No nausea vomiting or diarrhea. He is tolerating oral intake. His sputum culture was sent, Gram stain weaning rare PMNs, rare epithelial cells, few gram-negative bacilli and rare gram-positive positive cocci On 04/11/2021 patient seen in follow-up on medical surgical floor. He continues to improve, today he is on room air with pulse ox of 93%, afebrile, hemodynamically stable, overall he states he is significantly better, his been tolerating ambulation. His had no acute events overnight, he was outside the window for Remdesivir, he was treated supportively with prophylactic anticoagulation, Decadron, and multivitamins. Today's labs have been reviewed, his d-dimer is improved and is down to 1.14, his ferritin is down to 1548, LDH is down to 316 and CRP is down to 1.5. Patient is being discharged home today, he stable for discharge home from pulmonary perspective. Objective - Vital Signs Vital signs: Vital Signs Temp 97.7 F 04/11/21 09:59 Pulse 93 04/11/21 09:59 Resp 18 04/11/21 09:59 BP 123/78 04/11/21 09:59 Pulse Ox 93 L 04/11/21 09:59 Intake & Output 04/10/21 04/11/21 04/11/21 18:59 06:59 18:59 Intake Total 1200 Balance 1200 Intake: Oral 1200 Other: Voiding Method Toilet # Voids 6 2 # Bowel Movements 0 - Exam GENERAL EXAM: Alert, very pleasant, 51-year-old male on room air with a pulse ox of 93% comfortable in no apparent distress. HEAD: Normocephalic/atraumatic. EYES: Normal reaction of pupils, equal size. Conjunctiva pink, sclera white. NOSE: Clear with pink turbinates. THROAT: No erythema or exudates. NECK: No masses, no JVD, no thyroid enlargement, no adenopathy. CHEST: No chest wall deformity. Symmetrical expansion. LUNGS: Equal air entry with inspiratory crackles in bilateral bases CVS: Regular rate and rhythm, normal S1 and S2, no gallops, no murmurs, no rubs ABDOMEN: Soft, nontender. No hepatosplenomegaly, normal bowel sounds, no guarding or rigidity. EXTREMITIES: No clubbing, no edema, no cyanosis, 2+ pulses and upper and lower extremities. MUSCULOSKELETAL: Muscle strength and tone normal. SPINE: No scoliosis or deformity SKIN: No rashes CENTRAL NERVOUS SYSTEM: Alert and oriented -3. No focal deficits, tone is normal in all 4 extremities. PSYCHIATRIC: Alert and oriented -3. Appropriate affect. Intact judgment and insight. - Labs CBC & Chem 7: 04/10/21 05:19 04/10/21 05:19 Labs: Abnormal Lab Results - Last 24 Hours (Table) 04/10/21 04/10/21 04/11/21 Range/Units 16:44 20:55 05:53 D-Dimer 1.14 H (<0.60) mg/L FEU POC Glucose (mg/dL) 131 H 142 H (75-99) mg/dL Ferritin (22.0-322.0) ng/mL Lactate Dehydrogenase (120-246) U/L C-Reactive Protein (0.00-0.80) mg/dL 04/11/21 04/11/21 Range/Units 05:53 11:14 D-Dimer (<0.60) mg/L FEU POC Glucose (mg/dL) 176 H (75-99) mg/dL Ferritin 1548.0 H (22.0-322.0) ng/mL Lactate Dehydrogenase 316 H (120-246) U/L C-Reactive Protein 1.50 H (0.00-0.80) mg/dL Microbiology - Last 24 Hours (Table) 04/09/21 17:14 Gram Stain - Final Sputum Sputum Culture - Final Assessment and Plan Plan: Assessment: #1. Acute hypoxic respiratory failure, with onset of symptoms of greater than 7 days prior to presentation. Patient is a non-vaccinated adult. Recently hospitalized at [facility], and was sent home on 3 L of supplemental oxygen. The dates are not known to us. He was sent home on antibiotics for possibly bacterial infection. Patient is outside the window for Remdesivir #2. Recent admission at [facility] for COVID-19 pneumonia, and patient was sent home on supplemental oxygen at 3 L #3. Hypertension #4. Never smoker #5. Elevated d-dimer #6. Rule out possibility of bacterial pneumonia Plan: Patient continues to improve, he is currently on room air No acute events overnight His inflammatory markers are improving He stable for discharge home from pulmonary perspective He can complete outpatient course of Decadron for a total of 10 days He can continue on COVID-19 vitamins He states he has back in the office in [address] Fontaine I performed a history & physical examination of the patient and discussed their management with my nurse practitioner, Yvette Krishna. I reviewed the nurse practitioner's note and agree with the documented findings and plan of care. Lung sounds are positive for diffuse wheezes throughout the lung dixon. The findings and the impression was discussed with the patient. I attest to the documentation by the nurse practitioner. Time with Patient: Less than 30
[2021-04-11 14:21] VITALS: BP 114/77; PULSE 101; RESP 16; TEMP 97.9
== END 2021-04-11 15:14 | disposition home or self-care (01) | DRG 871 ==
LOC: EC 16:47 → 4SSUR 20:04
PROVIDERS: ADMIT Hospitalist; ATTEND Hospitalist
PROC: 3E0333Z Introduction of Anti-inflammatory into Peripheral Vein, Percutaneous Approach (ICD-10-PCS; principal; 2021-04-08)
DX: A41.89 Other specified sepsis (principal); U07.1 COVID-19; J12.82 Pneumonia due to coronavirus disease 2019; J96.01 Acute respiratory failure with hypoxia; E87.1 Hypo-osmolality and hyponatremia; E87.2 Acidosis; D72.821 Monocytosis (symptomatic); E11.65 Type 2 diabetes mellitus with hyperglycemia; E66.9 Obesity, unspecified; Z68.33 Body mass index [BMI] 33.0-33.9, adult; I10 Essential (primary) hypertension; Z79.899 Other long term (current) drug therapy
CPT/HCPCS: 36415; 71045; 71275; 80048; 80053; 82728; 83605; 83615; 83735; 84145; 84484; 85025; 85379; 85610; 85730; 86140; 87070; 87205; 93005; 93306; 94760; 96365; 96372; 99285